=== PATIENT | female | born 1995 ===

== ENCOUNTER 2017-12-05 17:58 | Emergency (ER) | payer OTHER ==
[~2017-12-05] VITALS: Ht 162.6 cm; Wt 65.0 kg
[2017-12-05 18:06] VITALS: Ht 162.6 cm; Wt 65.0 kg
[2017-12-05] MEDS ORDERED: DIPHTHERIA/TETANUS/PERTUSSIS 0.5 ML SYR/VIAL IM. ONE (18:30)
[2017-12-05] MEDS ORDERED: XYLOCAINE 1%/SOD BICARB 20 ML VIAL INFIL ONE (19:00)
--- NOTE | 2017-12-05 19:09 | EMERGENCY ROOM VISIT NOTE ---
ED Visit Note First contact with patient: 18:11 CHIEF COMPLAINT: Left forearm laceration HISTORY OF PRESENT ILLNESS: Patient is a [id number] 22-year-old female who presents emergency department for evaluation of a left forearm laceration that she sustained just prior to arrival. She states that her desk is glass and there is a chipped piece on the edge that she ran her arm over, causing the laceration described below. She declined the blood off of the area with soap and water. The bleeding has stopped and there is no pain. REVIEW OF SYSTEMS: GENERAL: No fever or chills, easy fatigue, loss of appetite , or significant weight change. NEUROLOGICAL: No headache, change in mental status, weakness, numbness, or dizziness. PMH: Electronic medical records are reviewed and summarized as above/below. See Problem List. Her tetanus is up-to-date.. SOCIAL HISTORY: Patient is a college student originally from [facility], who lives locally with roommates. Non-smoker. PHYSICAL EXAM: Vital Signs: Reviewed Nurse's notes. There is a 1 cm long laceration on the volar aspect of the left forearm. The edges are gaping widely apart. There is no foreign material in the wound and it looks clean. There is no active bleeding. No deep structures such as tendons or nerves are seen in the base of the wound. EMERGENCY DEPARTMENT COURSE: Using sterile technique, saline and Betadine cleansing, and 1% lidocaine anesthesia, the laceration was repaired with 3, 5-0 nylon sutures. Patient tolerated the procedure well. There is no suspicion of foreign body, no evidence for nerve, vascular or tendinous injury. Medication reconciliation: I attest that I have personally reviewed the patient' s current medication list. Blood pressure screening : Patient was found to have normal blood pressure on screening and does not require follow-up. Allergies Coded Allergies: No Known Allergies (Unverified , 12/05/17) Vital Signs Date Time Temp Pulse Resp B/P (MAP) Pulse Ox O2 Delivery O2 Flow Rate FiO2 12/05/17 19:16 36.3 75 20 124/83 99 12/05/17 18:06 36.3 75 20 124/83 99 Room Air Departure Information Impression Primary Impression: Forearm laceration Referrals [facility] (PCP) Patient Instructions My [facility] Additional Instructions Keep wound clean and dry. Do not allow any crusting or dried blood to accumulate on sutures. Clean gently with soap and water. Use an antibiotic ointment for 3-4 days, then let wound dry. Suture removal in 10 days. Return sooner for any signs of infection (increasing redness, swelling, drainage). Ice and elevate for swelling and pain. Ibuprofen 600 mg and Tylenol 1000 mg every 6 hrs for pain. Problem Qualifiers Primary Impression: Forearm laceration Encounter type: initial encounter Laterality: left Qualified Codes: S51.812A - Laceration without foreign body of left forearm, initial encounter
[2017-12-05 19:16] VITALS: BP 124/83; PULSE 75; TEMP 36.3; O2SAT 99
== END 2017-12-05 19:16 | disposition home or self-care (01) ==
LOC: C.EDB 18:01 → C.EDD 19:16
DX: S51.812A Laceration without foreign body of left forearm, initial encounter (principal); W25.XXXA Contact with sharp glass, initial encounter

== ENCOUNTER 2017-12-18 17:48 | Emergency (ER) | payer OTHER ==
[~2017-12-18] VITALS: Ht 163.8 cm; Wt 66.7 kg
[2017-12-18 17:54] VITALS: TEMP 36.8; Ht 163.8 cm; Wt 66.7 kg
[2017-12-18 18:11] VITALS: BP 109/74; PULSE 87; O2SAT 99
--- NOTE | 2017-12-19 11:41 | EMERGENCY ROOM VISIT NOTE ---
ED Visit Note First contact with patient: 17:56 CHIEF COMPLAINT: Suture removal. HISTORY OF PRESENT ILLNESS: Ms. Cruz is a 22-year-old female who ambulates into the ED requesting suture removal for a left forearm laceration she sustained 13 days ago. She reports since being discharged she has been feeling well and she has not seen any signs of infection around her wound and also feels that her wound is healing well. PHYSICAL EXAM: Vital Signs: Date Time Temp Pulse Resp B/P (MAP) Pulse Ox O2 Delivery O2 Flow Rate FiO2 12/18/17 17:54 36.8 87 18 109/74 99 Room Air General: 22-year-old female in no acute distress, afebrile and hemodynamically stable. Neurological: Awake, alert and oriented and answering questions appropriately and following commands. Skin: Warm, dry and pink. Left forearm: Clean dry and intact wound on the left forearm without signs of infection (erythema, swelling, tenderness, purulent drainage). ED COURSE: Patient is assessed as noted above. Patient's medication list was reviewed. 3 sutures were removed without any difficulty and there was no separation of the wound edges. Patient was educated about today's findings and instructed on her treatment plan ; she verbalized understanding and agreement with this plan. DISPOSITION: Patient discharged home in stable condition. CLINICAL IMPRESSION: Suture removal; Well healing laceration. PLAN: Wound care and signs of infection were discussed with the patient. Patient was encouraged to follow-up with primary care provider or return to the ED for any signs of infection or any new/concerning symptoms.
== END 2017-12-18 18:11 | disposition home or self-care (01) ==
LOC: C.EDB 17:48 → C.EDD 18:11
DX: S51.812D Laceration without foreign body of left forearm, subsequent encounter (principal); X58.XXXD Exposure to other specified factors, subsequent encounter